=== PATIENT | male | born 1950 | race Caucasian/White ===

== ENCOUNTER 2019-02-19 10:51 | Inpatient (IN) | payer OTHER, MEDICARE ==
[2019-02-19] MEDS ORDERED: ASPIRIN 81 MG TABLET, CHEWABLE PO ONE (11:14)
[2019-02-19] MEDS ORDERED: KETOROLAC TROMETHAMINE INJ/PF 30 MG/1 ML SDV IV ONE (11:15)
--- NOTE | 2019-02-19 11:16 | ER Document Report ---
ED Medical Screen (RME) - General Chief Complaint: Chest Pain Stated Complaint: CHEST PAIN Time Seen by Provider: 02/19/19 11:09 Primary Care Provider: HILARIA MCFADDEN MD [Primary Care Provider] - Follow up as needed Mode of Arrival: Ambulatory Information source: Patient Notes: Patient presents emergency department with complaints of chest pain\epigastric pain for the past few weeks. Reports increased pain in the past 4 days. Reports history of pancreatitis believes it may be this. Also reports history of diabetes COPD and [place]. Denies other symptoms such as fever vomiting diarrhea. EKG shows sinus rhythm. Respiratory rate even unlabored I have greeted and performed a rapid initial assessment of this patient. A comprehensive ED assessment and evaluation of the patient, analysis of test results and completion of the medical decision making process will be conducted by additional ED providers. Dictation of this chart was performed using voice recognition software; therefore, there may be some unintended grammatical errors. TRAVEL OUTSIDE OF THE [place] IN LAST 30 DAYS: No - Related Data Allergies/Adverse Reactions: bupropion HCl [From Wellbutrin] Allergy (Unknown, Verified 02/19/19 10:52) lamotrigine [From Lamictal] Allergy (Unknown, Verified 02/19/19 10:52) lovastatin [Lovastatin] Allergy (Unknown, Verified 02/19/19 10:52) quetiapine [Quetiapine] Allergy (Unknown, Verified 02/19/19 10:52) simvastatin [From Zocor] Allergy (Unknown, Verified 02/19/19 10:52) Past Medical History - Social History Chew tobacco use (# tins/day): No Frequency of alcohol use: None Drug Abuse: None - Past Medical History Cardiac Medical History: Reports: Hx Hypercholesterolemia, Hx Hypertension Pulmonary Medical History: Reports: Hx COPD Denies: Hx Tuberculosis Endocrine Medical History: Reports: Hx Diabetes Mellitus Type 2 Renal/ Medical History: Reports: Hx Kidney Stones. Denies: Hx Peritoneal Dialysis GI Medical History: Reports: Hx Gastroesophageal Reflux Disease, Hx Pancreatitis Musculoskeltal Medical History: Reports Hx Arthritis Psychiatric Medical History: Reports: Hx Depression, Hx Post Traumatic Stress Disorder - Due to serving in [place] Past Surgical History: Reports: Hx Appendectomy, Hx Cholecystectomy. Denies: Hx Pacemaker - Immunizations Hx Diphtheria, Pertussis, Tetanus Vaccination: Yes Physical Exam - Vital signs Vitals: Temp Pulse Resp BP Pulse Ox 98.4 F 102 H 18 127/77 H 96 02/19/19 11:07 02/19/19 11:07 02/19/19 11:07 02/19/19 11:07 02/19/19 11:07 Course - Vital Signs Vital signs: Temp Pulse Resp BP Pulse Ox 98.4 F 102 H 18 127/77 H 96 02/19/19 11:07 02/19/19 11:07 02/19/19 11:07 02/19/19 11:07 02/19/19 11:07 Doctor's Discharge - Discharge Referrals: HILARIA MCFADDEN MD [Primary Care Provider] - Follow up as needed
[2019-02-19 11:42] LABS: ABSOLUTE BASOPHILS # (AUTO) 0.1 10^3/uL (0.0-0.2); ABSOLUTE MONOCYTES (AUTO) 1.5 10^3/uL (0.1-1.4); ABSOLUTE NEUT (AUTO) 9.1 10^3/uL (1.7-8.2); BASOPHILS % (AUTO) 0.9 % (0-2); EOSINOPHILS % (AUTO) 0.3 % (0-6); HEMATOCRIT 36.3 % (37.9-51.0); HEMOGLOBIN 12.2 g/dL (13.5-17.0); LYMPHOCYTES % (AUTO) 8.2 % (13-45); MEAN CORPUSCULAR HGB CONC 33.7 g/dL (32.0-36.0); MEAN CORPUSCULAR VOLUME 83 fl (80-97); PLATELET COUNT 393 10^3/uL (150-450); RED BLOOD COUNT 4.37 10^6/uL (4.35-5.55); RED CELL DISTRIBUTION WIDTH 13.3 % (11.5-14.0); SEGMENTED NEUTROPHILS % (AUTO) 77.6 % (42-78); TOTAL CELLS COUNTED % (AUTO) 100 %; WHITE BLOOD COUNT 11.8 10^3/uL (4.0-10.5)
[2019-02-19 12:02] LABS: ALANINE AMINOTRANSFERASE 16 U/L (21-72); ALKALINE PHOSPHATASE 121 U/L (38-126); AMYLASE 35 U/L (30-110); ANION GAP 15 (5-19); ASPARTATE AMINO TRANSFERASE 13 U/L (17-59); BILIRUBIN,DIRECT 0.4 mg/dL (0.0-0.4); BILIRUBIN,TOTAL 0.8 mg/dL (0.2-1.3); BLOOD UREA NITROGEN 19 mg/dL (7-20); CALCIUM 11.1 mg/dL (8.4-10.2); CARBON DIOXIDE 20 mmol/L (22-30); CHLORIDE 101 mmol/L (98-107); CREATINE KINASE 21 U/L (55-170); GLUCOSE 263 mg/dL (75-110); LIPASE 33.5 U/L (23-300); POTASSIUM 4.9 mmol/L (3.6-5.0); SODIUM 135.5 mmol/L (137-145); TOTAL PROTEIN 7.6 g/dL (6.3-8.2)
[2019-02-19 12:14] LABS: APPEARANCE,URINE SLIGHTLY-CLOUDY; BILIRUBIN,URINE SMALL (NEGATIVE); GLUCOSE, URINE >=500 mg/dL (NEGATIVE); KETONES,URINE 20 mg/dL (NEGATIVE); LEUKOCYTE ESTERASE,URINE NEGATIVE (NEGATIVE); NITRITE,URINE NEGATIVE (NEGATIVE); PROTEIN,URINE 100 mg/dL (NEGATIVE); URINE SPECIFIC GRAVITY 1.027; UROBILINOGEN,URINE NEGATIVE mg/dL (<2.0)
[2019-02-19 12:15] LABS: COLOR,URINE YELLOW
--- NOTE | 2019-02-19 12:15 | RADIOLOGY REPORT (SQ) ---
EXAM DESCRIPTION: CHEST 2 VIEWS COMPLETED DATE/TIME: 02/19/2019 12:03 pm REASON FOR STUDY: chest pain/epigastric pain COMPARISON: 05/24/2015 EXAM PARAMETERS: NUMBER OF VIEWS: two views TECHNIQUE: Digital Frontal and Lateral radiographic views of the chest acquired. RADIATION DOSE: NA LIMITATIONS: none FINDINGS: LUNGS AND PLEURA: Improved right upper lobe aeration with minimal residual linear opacitie s, likely scarring. No new airspace disease, pleural effusion or pneumothorax. MEDIASTINUM AND HILAR STRUCTURES: No masses or contour abnormalities. HEART AND VASCULAR STRUCTURES: Normal heart size. Aortic atherosclerosis. BONES: No acute findings. HARDWARE: None in the chest. OTHER: No other significant finding. IMPRESSION: Mild streaky right basilar opacities possibly atelectasis/scarring or infection. Right upper lobe scarring. TECHNICAL DOCUMENTATION: JOB ID: [id number] [employer]- All Rights Reserved Reading location - IP/workstation name: [email or web address]
--- NOTE | 2019-02-19 12:39 | ER Document Report ---
ED General - General Chief Complaint: Chest Pain Stated Complaint: CHEST PAIN Time Seen by Provider: 02/19/19 11:09 Primary Care Provider: HILARIA MCFADDEN MD [NO LOCAL MD] - Follow up as needed Mode of Arrival: Ambulatory Notes: Patient has had pain in the epigastric region for the past couple of weeks, off and on. Over the last 4 days, his pain has increased and he is been unable to sleep. He has not been eating or drinking much fluid. Patient has a history of chronic relapsing pancreatitis, starting about 35 years ago. He says he has had about 20 episodes of pancreatitis in his lifetime. At one time, he had a stent in his common bile duct, but that has now been removed. Denies any nausea or vomiting. Has not been eating because in the past he has been able to self treat by not eating or drinking anything and stimulating his pancreas. Denies any chest pains. Denies any fevers. Some cough. Does not drink alcohol. PMH: Appendectomy and cholecystectomy, many years ago. Insulin-dependent diabetic. GERD. Hypertension. High cholesterol. TRAVEL OUTSIDE OF THE [place] IN LAST 30 DAYS: No - Related Data Allergies/Adverse Reactions: bupropion HCl [From Wellbutrin] Allergy (Unknown, Verified 02/19/19 10:52) lamotrigine [From Lamictal] Allergy (Unknown, Verified 02/19/19 10:52) lovastatin [Lovastatin] Allergy (Unknown, Verified 02/19/19 10:52) quetiapine [Quetiapine] Allergy (Unknown, Verified 02/19/19 10:52) simvastatin [From Zocor] Allergy (Unknown, Verified 02/19/19 10:52) Past Medical History - General Information source: Patient - Social History Smoking Status: Former Smoker Chew tobacco use (# tins/day): No Frequency of alcohol use: None Drug Abuse: None Family History: Reviewed & Not Pertinent Patient has suicidal ideation: No Patient has homicidal ideation: No - Past Medical History Cardiac Medical History: Reports: Hx Hypercholesterolemia, Hx Hypertension Pulmonary Medical History: Reports: Hx COPD Endocrine Medical History: Reports: Hx Diabetes Mellitus Type 1, Hx Diabetes Mellitus Type 2 Renal/ Medical History: Reports: Hx Kidney Stones GI Medical History: Reports: Hx Gastroesophageal Reflux Disease, Hx Pancreatitis Musculoskeletal Medical History: Reports Hx Arthritis Psychiatric Medical History: Reports: Hx Depression, Hx Post Traumatic Stress Disorder - Due to serving in [place] Past Surgical History: Reports: Hx Appendectomy, Hx Cholecystectomy - Immunizations Hx Diphtheria, Pertussis, Tetanus Vaccination: Yes Hx Pneumococcal Vaccination: 07/08/08 Review of Systems - Review of Systems Notes: REVIEW OF SYSTEMS: CONSTITUTIONAL : Denies fever. EENT: Denies eye, ear, nose or mouth or throat pain or other symptoms. CARDIOVASCULAR: Denies chest pain. RESPIRATORY: Denies cough, chest congestion, or shortness of breath. GASTROINTESTINAL: See HPI. GENITOURINARY: Denies difficulty or painful urinating, urinary frequency, blood in urine. MUSCULOSKELETAL: Denies back or neck pain. Denies joint pain or swelling. SKIN: Denies rash or skin lesions. NEUROLOGICAL: Denies LOC or altered mental status. Denies headache. Denies sensory loss or motor deficits. ALL OTHER SYSTEMS REVIEWED AND NEGATIVE. Physical Exam - Vital signs Vitals: Temp Pulse Resp BP Pulse Ox 98.4 F 102 H 18 127/77 H 96 02/19/19 11:07 02/19/19 11:07 02/19/19 11:07 02/19/19 11:07 02/19/19 11:07 Interpretation: Normal Notes: PHYSICAL EXAMINATION: GENERAL: Well-appearing, in no acute distress. HEAD: Atraumatic, normocephalic. EYES: Pupils equal round and reactive to light, extraocular movements intact. ENT: oropharynx clear without exudates. Moist mucous membranes. NECK: Normal range of motion, supple. LUNGS: Breath sounds clear and equal bilaterally. HEART: Regular rate and rhythm without murmurs. ABDOMEN: Very tender to press in the epigastrium. Some guarding there. No rebound. Remainder of the abdomen is soft. BACK: No tenderness throughout entire back. EXTREMITIES: Normal range of motion without pain. NEUROLOGICAL: Normal speech, normal gait. Normal sensory, motor, and reflex exams. Awake, alert, and oriented x3. Cranial nerves normal. PSYCH: Normal mood, normal affect. SKIN: Warm, dry, no rashes. Course - Re-evaluation Re-evalutation: 02/19/19 16:39 Patient had slight pain relief with Toradol given at triage. He says the pain is coming back now and have ordered him a milligram of IV Dilaudid. CT scan shows pancreatitis. Spoke with hospitalist, Dr. Lu, who will come and admit the patient to elemetry. - Vital Signs Vital signs: Temp Pulse Resp BP Pulse Ox 98.4 F 102 H 18 145/78 H 96 02/19/19 11:07 02/19/19 11:07 02/19/19 14:02 02/19/19 14:01 02/19/19 14:02 - Laboratory Result Diagrams: 02/19/19 11:24 02/19/19 11:24 Laboratory results interpreted by me: 02/19/19 02/19/19 02/19/19 11:24 11:24 11:34 WBC 11.8 H Hgb 12.2 L Hct 36.3 L Lymphocytes % 8.2 L Absolute Neutrophils 9.1 H Absolute Monocytes 1.5 H Sodium 135.5 L Carbon Dioxide 20 L Glucose 263 H Calcium 11.1 H AST 13 L ALT 16 L Creatine Kinase 21 L Urine Protein 100 H Urine Glucose (UA) >=500 H Urine Ketones 20 H Urine Bilirubin SMALL H - Diagnostic Test Radiology reviewed: Image reviewed, Reports reviewed - CT scan shows pancreatitis. - EKG Interpretation by Me EKG shows normal: Sinus rhythm Rhythm: NSR Additional EKG results interpreted by me: 02/19/19 16:44 EKG is normal with no acute changes. No STEMI. Discharge - Discharge Clinical Impression: Pancreatitis Condition: Stable Disposition: ADMITTED INPATIENT Admitting Provider: Tabitha (Hospitalist) Unit Admitted: Telemetry Referrals: HILARIA MCFADDEN MD [NO LOCAL MD] - Follow up as needed
[2019-02-19] MEDS: NORMAL SALINE 1000 ML 1,000 ML IV PRN ×2 (12:43→13:30)
[2019-02-19 13:27] LABS: URINE AMPHETAMINES SCREEN NEGATIVE; URINE BARBITURATES SCREEN NEGATIVE; URINE BENZODIAZEPINES SCREEN NEGATIVE; URINE COCAINE SCREEN NEGATIVE; URINE MARIJUANA (THC) SCREEN NEGATIVE; URINE METHADONE SCREEN NEGATIVE; URINE PHENCYCLIDINE SCREEN NEGATIVE
--- NOTE | 2019-02-19 14:39 | EKG REPORT ---
SEVERITY:- NORMAL ECG - SINUS RHYTHM : Confirmed by: Ray Holden MD 19-Feb-2019 14:38:14
--- NOTE | 2019-02-19 16:08 | RADIOLOGY REPORT (SQ) ---
EXAM DESCRIPTION: CT ABD/PELVIS WITH IV ORAL COMPLETED DATE/TIME: 02/19/2019 3:44 pm REASON FOR STUDY: Epig pain, Hx multiple pancreatitis, lipase normal COMPARISON: None. TECHNIQUE: CT scan of the abdomen and pelvis performed using helical scanning technique with dynamic intravenous contrast injection. No oral contrast. Images reviewed with lung, soft tissue, and bone windows. Reconstructed coronal and sagittal MPR images reviewed. Delayed images for evaluation of the urinary system also acquired. All images stored on PACS. All CT scanners at this facility use dose modulation, iterative reconstruction, and/or weight based d osing when appropriate to reduce radiation dose to as low as reasonably achievable (ALARA). [facility]: Dose Right [facility]: CareDose [facility]: Dose Right [facility]: Teradose 4D [facility]: [employer] CONTRAST TYPE AND DOSE: contrast/concentration: Isovue 350.00 mg/ml; Total Contrast Delivered: 77.0 ml; Total Saline Delivered: 67.0 ml RENAL FUNCTION: CREATININE 0.56 RADIATION DOSE: CT Rad equipment meets quality standard of care and radiation dose reduction techniq ues were employed. CTDIvol: 9.5 - 13.5 mGy. DLP: 1134 mGy-cm.. LIMITATIONS: None. FINDINGS: LOWER CHEST: No significant findings. No nodules or infiltrates. LIVER: Mild intrahepatic ductal dilation, similar to prior. There is no focal hepatic lesions. Norm al liver size. SPLEEN: Normal size. No focal lesions. PANCREAS: Diffuse pancreatic parenchymal calcifications. There is persistent dilation of the main pa ncreatic duct measuring up to 1.0 cm. Bulky calcifications at the level of the pancreatic duct in th e head and uncinate process. There is ill-defined peripancreatic stranding. No evidence of hypoenha ncement of the pancreatic parenchyma or large adjacent collection. GALLBLADDER: Surgically absent. Dilation of the CBD measuring up to 9 mm, stable. ADRENAL GLANDS: No significant masses or asymmetry. RIGHT KIDNEY AND URETER: Minimally increased size of the interpolar cyst. No discrete solid masses. No nephrolithiasis. No hydronephrosis. LEFT KIDNEY AND URETER: Scattered subcentimeter hypodense lesions, likely cysts. No nephrolithiasis. No hydronephrosis. AORTA AND VESSELS: No aneurysm. No dissection. Renal arteries, SMA, celiac without stenosis. RETROPERITONEUM: No retroperitoneal adenopathy, hemorrhage or masses. BOWEL AND PERITONEAL CAVITY: No evidence of intestinal obstruction. Scattered colonic diverticula. No focal bowel wall thickening. APPENDIX: Not visualized. PELVIS: No mass. No free fluid. Normal bladder. ABDOMINAL WALL: No masses. No hernias. BONES: No acute bony abnormality. No suspicious lytic or blastic osseous lesions. OTHER: No other significant finding. IMPRESSION: 1. Findings compatible with acute interstitial pancreatitis. No evidence of pancreatic necrosis or peripancreatic collection. 2. Additional stable findings of chronic pancreatitis with pancreatic calcifications and dilation of the main pancreatic duct measuring up to 1.0 cm. Bulky calcifications within the duct at the level of the pancreatic head, stable. Additional stable mild intrahepatic biliary ductal dilation. TECHNICAL DOCUMENTATION: JOB ID: [id number] Quality ID # [id number]: Final reports with documentation of one or more dose reduction techniques (e.g., Au tomated exposure control, adjustment of the mA and/or kV according to patient size, use of iterative reconstruction technique) 2010 [employer]- All Rights Reserved Reading location - IP/workstation name: [email or web address]
[2019-02-19] MEDS ORDERED: HYDROMORPHONE HCL INJ/PF 2 MG/ML AMPULE IV ONE (16:12)
[2019-02-19] MEDS ORDERED: ONDANSETRON HCL INJ/PF 4 MG/2 ML SDV IV PRN (17:09)
[2019-02-19] MEDS ORDERED: GLUCAGON,HUMAN RECOMB 1 MG INJ SUBCUT PRN (17:09)
[2019-02-19] MEDS ORDERED: DEXTROSE 40% GEL 15 GM TUBE PO PRN ×2 (17:09)
[2019-02-19] MEDS ORDERED: DEXTROSE 50%-WATER 25 GM/50 ML DISP.SYRIN IV PRN ×2 (17:09)
[2019-02-19] MEDS ORDERED: ALBUTEROL SULFATE HFA (90 MCG/PUFF) 200 PUFF/8.5 GM MDI IH PRN (17:15)
--- NOTE | 2019-02-19 17:33 | PDOC H&P ---
History of Present Illness Admission Date/PCP: 02/19/19 16:50 [facility] History of Present Illness: OZIEL HAYWARD is a 68 year old male with a history of chronic pancreatitis who said he is been admitted to the hospital over 20 times in his life with pancreatitis who presents with a nearly 2-week history of gnawing dull aching mid epigastric abdominal pain. Nothing really makes it better. He has continued to eat through it but said he did not have anything to eat yesterday. He has not had any diarrhea or abdominal distention. No nausea or vomiting. No fevers. He said he has not drank alcohol very long time, for several years. He looked pretty comfortable when I saw him in the ER, but he said he had just gotten a "pain shot." He was asking about getting something to eat, but I told him that that was contrary to the treatment for pancreatitis. Past Medical History Cardiac Medical History: Reports: Hyperlipidema, Hypertension Pulmonary Medical History: Reports: Chronic Obstructive Pulmonary Disease (COPD) Denies: Tuberculosis Endocrine Medical History: Reports: Diabetes Mellitus Type 1, Diabetes Mellitus Type 2 GI Medical History: Reports: Gastroesophageal Reflux Disease Musculoskeltal Medical History: Reports: Arthritis Psychiatric Medical History: Reports: Depression, Post Traumatic Stress Disorder - Due to serving in [place] War Past Surgical History Past Surgical History: Reports: Appendectomy, Cholecystectomy Denies: Pacemaker Social History Smoking Status: Former Smoker Hx Recreational Drug Use: Yes Hx Prescription Drug Abuse: No Family History Family History: Reviewed & Not Pertinent Parental Family History Reviewed: Yes - Both parents of stroke Children Family History Reviewed: Unknown Sibling(s) Family History Reviewed.: Yes - Brother of an [place], one had pancreatic cancer, and a sister had lung cancer Medication/Allergy Home Medications: Albuterol Sulfate [Proair Hfa Inhalation Aerosol 8.5 Gm Mdi] 200 puff IH Q6H PRN 12/04/11 Amlodipine Besylate [Norvasc 10 mg Tablet] 10 mg PO DAILY 12/04/11 Butalbital/Acetaminophen [Sedapap Tablet] 1 each PO Q6H PRN 12/04/11 Colestipol HCl 2 gm PO DAILY 12/04/11 Docusate Calcium [Surfak] 240 mg PO QHS 12/04/11 Ezetimibe [Zetia 10 Mg Tablet] 10 mg PO DAILY 12/04/11 Gemfibrozil 600 mg PO BID 12/04/11 Hydrocodone Bit/Acetaminophen [Hydrogesic 5-500 Mg Capsule] 1 each PO QID PRN 12/04/11 Multivitamin [Multivitamins] 1 each PO DAILY 12/04/11 Omeprazole [Prilosec] 20 mg PO DAILY 12/04/11 Psyllium Seed [Psyllium] 2 tsp PO QHS 12/04/11 Sertraline HCl 200 mg PO DAILY 12/04/11 Sildenafil Citrate [Viagra] 50 mg PO ASDIR PRN 12/04/11 Tiotropium [place] [Spiriva Handihaler 5 Doses/Package] 18 mcg IH DAILY 12/04/11 Trazodone HCl [Desyrel] 50 mg PO QHS 12/04/11 Insulin Regular, Human [Humulin R (Reg) Insulin 100 unit/mL] 12/08/11 Metformin HCl [Glucophage 500 Mg Tablet] 500 mg PO BID 12/08/11 Levofloxacin [Levaquin 750 mg Tablet] 750 mg PO DAILY #10 tablet 05/24/15 Ondansetron [Zofran Odt 4 mg Tablet] 1 - 2 tab PO Q4H #10 tab.rapdis 05/24/15 Tramadol HCl/Acetaminophen [Ultracet 37.5 mg/325 mg Tablet] 1 each PO Q6 #20 tablet 05/24/15 Allergies/Adverse Reactions: bupropion HCl [From Wellbutrin] Allergy (Unknown, Verified 02/19/19 10:52) lamotrigine [From Lamictal] Allergy (Unknown, Verified 02/19/19 10:52) lovastatin [Lovastatin] Allergy (Unknown, Verified 02/19/19 10:52) quetiapine [Quetiapine] Allergy (Unknown, Verified 02/19/19 10:52) simvastatin [From Zocor] Allergy (Unknown, Verified 02/19/19 10:52) Review of Systems All systems: reviewed and no additional remarkable complaints except as stated - All systems were reviewed and were negative except as noted above Physical Exam Vital Signs: Temp Pulse Resp BP Pulse Ox 98.4 F 102 H 20 142/83 H 94 02/19/19 11:07 02/19/19 11:07 02/19/19 17:01 02/19/19 17:01 02/19/19 17:01 Intake & Output 02/18/19 02/19/19 02/20/19 06:59 06:59 06:59 Intake Total 2000 Balance 2000 Weight 66.9 kg General appearance: PRESENT: no acute distress, cooperative, disheveled Head exam: PRESENT: atraumatic, normocephalic Eye exam: PRESENT: EOMI, PERRLA. ABSENT: conjunctival injection, nystagmus, scleral icterus Ear exam: PRESENT: normal external ear exam Mouth exam: PRESENT: dry mucosa, neck supple Throat exam: ABSENT: post pharyngeal erythema Neck exam: PRESENT: full ROM. ABSENT: carotid bruit, JVD, lymphadenopathy, meningismus, tenderness, thyromegaly Respiratory exam: PRESENT: clear to auscultation eric, symmetrical, unlabored. ABSENT: accessory muscle use, chest wall tenderness, crackles, prolonged expiratory phas, rhonchi, tachypnea, wheezes Cardiovascular exam: PRESENT: RRR, +S1, +S2 Pulses: PRESENT: normal carotid pulses Vascular exam: PRESENT: normal capillary refill GI/Abdominal exam: PRESENT: hypoactive bowel sounds, soft, tenderness - Mild midepigastric tenderness to palpation. ABSENT: distended, guarding, rebound Extremities exam: ABSENT: clubbing, pedal edema Musculoskeletal exam: PRESENT: ambulatory, normal inspection. ABSENT: deformity Neurological exam: PRESENT: alert, awake, oriented to person, oriented to place, oriented to time, oriented to situation, CN II-XII grossly intact. ABSENT: motor sensory deficit Psychiatric exam: PRESENT: appropriate affect, normal mood Skin exam: PRESENT: dry, warm Results Laboratory Results: 02/19/19 11:24 02/19/19 11:24 02/19/19 02/19/19 02/19/19 11:24 11:24 11:34 WBC 11.8 H RBC 4.37 Hgb 12.2 L Hct 36.3 L MCV 83 MCH 28.0 MCHC 33.7 RDW 13.3 Plt Count 393 Seg Neutrophils % 77.6 Lymphocytes % 8.2 L Monocytes % 13.0 Eosinophils % 0.3 Basophils % 0.9 Absolute Neutrophils 9.1 H Absolute Lymphocytes 1.0 Absolute Monocytes 1.5 H Absolute Eosinophils 0.0 Absolute Basophils 0.1 Sodium 135.5 L Potassium 4.9 Chloride 101 Carbon Dioxide 20 L Anion Gap 15 BUN 19 Creatinine 0.56 Est GFR ( Amer) > 60 Est GFR (Non-Af Amer) > 60 Glucose 263 H Calcium 11.1 H Total Bilirubin 0.8 AST 13 L ALT 16 L Alkaline Phosphatase 121 Total Protein 7.6 Albumin 4.0 Amylase 35 Lipase 33.5 Urine Color YELLOW Urine Appearance SLIGHTLY-CLOUDY Urine pH 5.0 Ur Specific [place] 1.027 Urine Protein 100 H Urine Glucose (UA) >=500 H Urine Ketones 20 H Urine Blood NEGATIVE Urine Nitrite NEGATIVE Ur Leukocyte Esterase NEGATIVE Urine WBC (Auto) 2 Urine RBC (Auto) 1 02/19/19 02/19/19 11:24 11:24 Creatine Kinase 21 L Troponin I < 0.012 Impressions: Abdomen/Pelvis CT 02/19/19 00:00 IMPRESSION: 1. Findings compatible with acute interstitial pancreatitis. No evidence of pancreatic necrosis or peripancreatic collection. 2. Additional stable findings of chronic pancreatitis with pancreatic calcifications and dilation of the main pancreatic duct measuring up to 1.0 cm. Bulky calcifications within the duct at the level of the pancreatic head, stable. Additional stable mild intrahepatic biliary ductal dilation. Chest X-Ray 02/19/19 11:14 IMPRESSION: Mild streaky right basilar opacities possibly atelectasis/scarring or infection. Right upper lobe scarring. Assessment and Plan - Diagnosis (1) Acute on chronic pancreatitis Is this a current diagnosis for this admission?: Yes Plan: Gut rest. He may have ice chips. Many of his medications will be on hold. IV fluids. PRN antiemetics and pain medication. We will advance his diet as he tolerates. His pancreas is fairly heavily calcified on CT and so his pancreatic enzymes may not reflect his current clinical status regarding inflammation of his pancreas. There was some mild peripancreatic stranding on CT. (2) Insulin dependent diabetes mellitus Is this a current diagnosis for this admission?: Yes Plan: Holding his metformin because of his CT scan. We will hold his long-acting insulin while he is n.p.o. PRN sliding scale. (3) COPD (chronic obstructive pulmonary disease) Qualifiers: COPD type: chronic bronchitis Chronic bronchitis type: simple Qualified Code(s): J41.0 - Simple chronic bronchitis Is this a current diagnosis for this admission?: Yes Plan: Continue his home medications, not acutely exacerbated - Time Time Spent with patient: 70 minutes Time Spent with patient: 35 or more minutes - Inpatient Certification Based on my medical assessment, after consideration of the patient's comorbidities, presenting symptoms, or acuity I expect that the services needed warrant INPATIENT care.: Yes I certify that my determination is in accordance with my understanding of Medicare's requirements for reasonable and necessary INPATIENT services [42 CFR 412.3e].: Yes Medical Necessity: Significant Comorbidiites Make Outpatient Treatment Too Risky, Need Close Monitoring Due to Risk of Patient Decompensation, Need For IV Fluids, Need For Continuous Telemetry Monitoring
[2019-02-19] MEDS: INSULIN LISPRO 100 UNIT/ML 3 ML VIAL SUBCUT SCH (17:52)
[2019-02-19] MEDS: MORPHINE SULFATE 10 MG/ML INJ IV PRN (21:27)
[2019-02-19] MEDS: HEPARIN SOD (PORCINE) 5,000 UNIT/ML 1 ML SYRINGE SUBCUT SCH (21:27)
[2019-02-20] MEDS: INSULIN LISPRO 100 UNIT/ML 3 ML VIAL SUBCUT SCH ×6 (00:24→17:21)
[2019-02-20] MEDS: MORPHINE SULFATE 10 MG/ML INJ IV PRN ×5 (02:32→23:41)
[2019-02-20] MEDS: HEPARIN SOD (PORCINE) 5,000 UNIT/ML 1 ML SYRINGE SUBCUT SCH ×3 (06:44→22:26)
[2019-02-20 06:57] LABS: HEMATOCRIT 33.4 % (37.9-51.0); HEMOGLOBIN 11.3 g/dL (13.5-17.0); MEAN CORPUSCULAR HEMOGLOBIN 28.1 pg (27.0-33.4); MEAN CORPUSCULAR VOLUME 83 fl (80-97); PLATELET COUNT 331 10^3/uL (150-450); RED BLOOD COUNT 4.04 10^6/uL (4.35-5.55); RED CELL DISTRIBUTION WIDTH 13.3 % (11.5-14.0); WHITE BLOOD COUNT 11.4 10^3/uL (4.0-10.5)
[2019-02-20 07:12] LABS: ANION GAP 15 (5-19); BLOOD UREA NITROGEN 10 mg/dL (7-20); CALCIUM 10.7 mg/dL (8.4-10.2); CARBON DIOXIDE 18 mmol/L (22-30); CHLORIDE 103 mmol/L (98-107); GLUCOSE 146 mg/dL (75-110); LIPASE 14.2 U/L (23-300); POTASSIUM 4.2 mmol/L (3.6-5.0); SODIUM 135.6 mmol/L (137-145)
[2019-02-20] MEDS: RINGERS SOLUTION,LACTATED 1,000 ML IV PRN ×3 (08:34→22:30)
[2019-02-20] MEDS: TIOTROPIUM BROMIDE DPI 5 CAP/KIT (18 MCG/CAP) IH SCH (10:27)
--- NOTE | 2019-02-20 11:24 | PDOC PROGRESS REPORT ---
Subjective Progress Note for:: 02/20/19 Subjective:: OZIEL HAYWARD is a 68 year old male with a history of chronic pancreatitis who said he is been admitted to the hospital over 20 times in his life with pancreatitis who presents with a nearly 2-week history of gnawing dull aching mid epigastric abdominal pain. Nothing really makes it better. He has continued to eat through it but said he did not have anything to eat yesterday. He has not had any diarrhea or abdominal distention. No nausea or vomiting. No fevers. He said he has not drank alcohol very long time, for several years. He looked pretty comfortable when I saw him in the ER, but he said he had just gotten a "pain shot." He was asking about getting something to eat, but I told him that that was contrary to the treatment for pancreatitis. 02/20/2019. Complaining of persistent abdominal pain, 3/5, mild nausea, denies any vomiting, passing flatus, has not had any vomiting, denies any fever, chills, vomiting, diarrhea, or any urinary symptoms. SBP 057817, T-max 98.6, pulse 60195, SPO2 9296 RA. WBC 11.4, hemoglobin 11.3, platelets 331, sodium 135, potassium 4.2, bicarb 18, creatinine 0.4, HBG 146, POC glucose 625971, Lipase 14.2. Reason For Visit: ACUTE ON CHRONIC PANCREATITIS Physical Exam Vital Signs: Temp Pulse Resp BP Pulse Ox 98.6 F 110 H 17 159/75 H 92 02/20/19 07:55 02/20/19 07:55 02/20/19 07:55 02/20/19 07:55 02/20/19 07:55 Intake & Output 02/19/19 02/20/19 02/21/19 06:59 06:59 06:59 Intake Total 2120 Output Total 930 Balance 1190 Weight 68.2 kg General appearance: PRESENT: no acute distress, well-developed, well-nourished Head exam: PRESENT: atraumatic, normocephalic Neck exam: ABSENT: carotid bruit, JVD, lymphadenopathy, thyromegaly Respiratory exam: PRESENT: clear to auscultation eric. ABSENT: rales, rhonchi, wheezes Cardiovascular exam: PRESENT: RRR. ABSENT: diastolic murmur, rubs, systolic murmur GI/Abdominal exam: PRESENT: guarding, hypoactive bowel sounds, tenderness Extremities exam: PRESENT: full ROM. ABSENT: calf tenderness, clubbing, pedal edema Neurological exam: PRESENT: alert, awake, oriented to person, oriented to place, oriented to time, oriented to situation, CN II-XII grossly intact. ABSENT: motor sensory deficit Results Laboratory Results: 02/20/19 06:07 02/20/19 06:07 02/19/19 02/19/19 02/19/19 11:24 11:24 11:34 WBC 11.8 H RBC 4.37 Hgb 12.2 L Hct 36.3 L MCV 83 MCH 28.0 MCHC 33.7 RDW 13.3 Plt Count 393 Seg Neutrophils % 77.6 Lymphocytes % 8.2 L Monocytes % 13.0 Eosinophils % 0.3 Basophils % 0.9 Absolute Neutrophils 9.1 H Absolute Lymphocytes 1.0 Absolute Monocytes 1.5 H Absolute Eosinophils 0.0 Absolute Basophils 0.1 Sodium 135.5 L Potassium 4.9 Chloride 101 Carbon Dioxide 20 L Anion Gap 15 BUN 19 Creatinine 0.56 Est GFR ( Amer) > 60 Est GFR (Non-Af Amer) > 60 Glucose 263 H Calcium 11.1 H Total Bilirubin 0.8 AST 13 L ALT 16 L Alkaline Phosphatase 121 Total Protein 7.6 Albumin 4.0 Amylase 35 Lipase 33.5 Urine Color YELLOW Urine Appearance SLIGHTLY-CLOUDY Urine pH 5.0 Ur Specific [place] 1.027 Urine Protein 100 H Urine Glucose (UA) >=500 H Urine Ketones 20 H Urine Blood NEGATIVE Urine Nitrite NEGATIVE Ur Leukocyte Esterase NEGATIVE Urine WBC (Auto) 2 Urine RBC (Auto) 1 02/20/19 02/20/19 06:07 06:07 WBC 11.4 H RBC 4.04 L Hgb 11.3 L Hct 33.4 L MCV 83 MCH 28.1 MCHC 34.0 RDW 13.3 Plt Count 331 Seg Neutrophils % Lymphocytes % Monocytes % Eosinophils % Basophils % Absolute Neutrophils Absolute Lymphocytes Absolute Monocytes Absolute Eosinophils Absolute Basophils Sodium 135.6 L Potassium 4.2 Chloride 103 Carbon Dioxide 18 L Anion Gap 15 BUN 10 Creatinine 0.47 L Est GFR ( Amer) > 60 Est GFR (Non-Af Amer) > 60 Glucose 146 H Calcium 10.7 H Total Bilirubin AST ALT Alkaline Phosphatase Total Protein Albumin Amylase Lipase 14.2 L Urine Color Urine Appearance Urine pH Ur Specific [place] Urine Protein Urine Glucose (UA) Urine Ketones Urine Blood Urine Nitrite Ur Leukocyte Esterase Urine WBC (Auto) Urine RBC (Auto) 02/19/19 02/19/19 11:24 11:24 Creatine Kinase 21 L Troponin I < 0.012 Impressions: Abdomen/Pelvis CT 02/19/19 00:00 IMPRESSION: 1. Findings compatible with acute interstitial pancreatitis. No evidence of pancreatic necrosis or peripancreatic collection. 2. Additional stable findings of chronic pancreatitis with pancreatic calcifications and dilation of the main pancreatic duct measuring up to 1.0 cm. Bulky calcifications within the duct at the level of the pancreatic head, stable. Additional stable mild intrahepatic biliary ductal dilation. Chest X-Ray 02/19/19 11:14 IMPRESSION: Mild streaky right basilar opacities possibly atelectasis/scarring or infection. Right upper lobe scarring. Assessment and Plan - Diagnosis (1) Acute on chronic pancreatitis Is this a current diagnosis for this admission?: Yes Plan: Afebrile, persistent pain, passing flatus, has not had any vomiting, mild nausea, no vomiting. Continue IV fluids, IV opioid analgesics, antiemetics, clear liquids if tolerated. Restart pancrelipase, colestipol. 02/20/2019: SBP 932210, T-max 98.6, pulse 61951, SPO2 9296 RA. WBC 11.4, hemoglobin 11.3, platelets 331, sodium 135, potassium 4.2, bicarb 18, creatinine 0.4, Lipase 14.2. (2) COPD (chronic obstructive pulmonary disease) Qualifiers: COPD type: chronic bronchitis Chronic bronchitis type: simple Qualified Code(s): J41.0 - Simple chronic bronchitis Is this a current diagnosis for this admission?: Yes Plan: Not on acute exacerbation, continue DuoNeb's, supplemental oxygen, PRN BiPAP. (3) Insulin dependent diabetes mellitus Is this a current diagnosis for this admission?: Yes Plan: Improving, not optimized. 02/20/2019: POC glucose 154347 Diabetic diet, sliding scale insulin, pre-meal insulin, long-acting insulin. Adjust dosage as needed. Restart home meds upon discharge. (4) Hyperlipidemia Is this a current diagnosis for this admission?: No Plan: Diet and lifestyle modification. Restart home meds. (5) Musculoskeletal pain, chronic Is this a current diagnosis for this admission?: No Plan: History of chronic neck injury. Restart Robaxin, cyclobenzaprine, opioid analgesics. Outpatient PCP and pain management follow-up. (6) Hypertension Is this a current diagnosis for this admission?: No Plan: Euvolemic, normotensive. Restart home meds. Adjust meds as needed. 02/20/2019: SBP 591415, T-max 98.6, pulse 17566, SPO2 9296 RA.
[2019-02-20] MEDS ORDERED: (PENDING PHARMACY ID) (Cyclobenzaprine Hcl [Flexeril 5 Mg Tablet] 5 MG) PO PRN (11:32)
[2019-02-20] MEDS ORDERED: (PENDING PHARMACY ID) (Insulin Aspart [Novolog Flexpen] 5 UNITS) SQ SCH (12:00)
[2019-02-20] MEDS ORDERED: ONDANSETRON HCL INJ/PF 4 MG/2 ML SDV IV PRN (12:30)
[2019-02-20] MEDS: METHOCARBAMOL 500 MG TABLET PO SCH ×3 (14:10→22:27)
[2019-02-20] MEDS: KETOROLAC TROMETHAMINE INJ/PF 30 MG/1 ML SDV IV PRN ×2 (15:54→22:25)
[2019-02-20] MEDS: GEMFIBROZIL 600 MG TABLET PO SCH (17:21)
[2019-02-21] MEDS: INSULIN LISPRO 100 UNIT/ML 3 ML VIAL SUBCUT SCH ×8 (03:24→22:03)
[2019-02-21 04:42] LABS: HEMATOCRIT 31.5 % (37.9-51.0); MEAN CORPUSCULAR HEMOGLOBIN 28.6 pg (27.0-33.4); MEAN CORPUSCULAR VOLUME 82 fl (80-97); PLATELET COUNT 358 10^3/uL (150-450); RED BLOOD COUNT 3.86 10^6/uL (4.35-5.55); RED CELL DISTRIBUTION WIDTH 12.8 % (11.5-14.0); WHITE BLOOD COUNT 10.9 10^3/uL (4.0-10.5)
[2019-02-21 05:06] LABS: ALANINE AMINOTRANSFERASE 13 U/L (21-72); ALBUMIN 3.1 g/dL (3.5-5.0); ALKALINE PHOSPHATASE 94 U/L (38-126); ANION GAP 12 (5-19); ASPARTATE AMINO TRANSFERASE 12 U/L (17-59); BILIRUBIN,DIRECT 0.4 mg/dL (0.0-0.4); BILIRUBIN,TOTAL 0.6 mg/dL (0.2-1.3); BLOOD UREA NITROGEN 6 mg/dL (7-20); CALCIUM 10.1 mg/dL (8.4-10.2); CARBON DIOXIDE 20 mmol/L (22-30); CHLORIDE 103 mmol/L (98-107); GLUCOSE 181 mg/dL (75-110); POTASSIUM 3.9 mmol/L (3.6-5.0); SODIUM 135.2 mmol/L (137-145); TOTAL PROTEIN 6.2 g/dL (6.3-8.2)
[2019-02-21] MEDS: MORPHINE SULFATE 10 MG/ML INJ IV PRN (06:20)
[2019-02-21] MEDS: HEPARIN SOD (PORCINE) 5,000 UNIT/ML 1 ML SYRINGE SUBCUT SCH ×3 (06:20→22:10)
[2019-02-21] MEDS: RINGERS SOLUTION,LACTATED 1,000 ML IV PRN (06:45)
[2019-02-21] MEDS: KETOROLAC TROMETHAMINE INJ/PF 30 MG/1 ML SDV IV PRN ×2 (08:33→17:24)
[2019-02-21] MEDS: GEMFIBROZIL 600 MG TABLET PO SCH ×2 (09:31→17:15)
[2019-02-21] MEDS: EZETIMIBE 10 MG TABLET PO SCH (09:31)
[2019-02-21] MEDS: METHOCARBAMOL 500 MG TABLET PO SCH ×4 (09:31→22:10)
[2019-02-21] MEDS: DULOXETINE HCL 30 MG CAPSULE.DR PO SCH (09:31)
[2019-02-21] MEDS: TIOTROPIUM BROMIDE DPI 5 CAP/KIT (18 MCG/CAP) IH SCH (09:31)
[2019-02-21] MEDS ORDERED: LOSARTAN POTASSIUM 25 MG TABLET PO SCH (10:00)
[2019-02-21] MEDS ORDERED: TIOTROPIUM BROMIDE DPI 5 CAP/KIT (18 MCG/CAP) IH SCH (10:00)
[2019-02-21] MEDS ORDERED: AMLODIPINE BESYLATE 10 MG TABLET PO SCH (10:00)
[2019-02-21] MEDS: LOSARTAN POTASSIUM 25 MG TABLET PO SCH (10:31)
[2019-02-21] MEDS: AMLODIPINE BESYLATE 10 MG TABLET PO SCH (10:31)
[2019-02-21] MEDS: HYDROMORPHONE HCL INJ/PF 2 MG/ML AMPULE IV PRN ×2 (10:35→22:03)
[2019-02-21] MEDS ORDERED: MAGNESIUM SULFATE/D5W 1 GM/100 ML RTUPB IV ONE (10:45)
[2019-02-21] MEDS ORDERED: DEXTROSE 50%-WATER SYRINGE 25 GM/50 ML DOSE IV PRN (16:00)
[2019-02-21] MEDS ORDERED: GLUCAGON,HUMAN RECOMB 1 MG INJ IM PRN (16:00)
[2019-02-21] MEDS ORDERED: DEXTROSE 50%-WATER SYRINGE 12.5 GM/25 ML DOSE IV PRN (16:00)
[2019-02-21] MEDS ORDERED: DEXTROSE 40% GEL 15 GM TUBE X 2 PO PRN (16:00)
[2019-02-21] MEDS ORDERED: DEXTROSE 40% GEL 15 GM TUBE PO PRN (16:00)
[2019-02-21] MEDS ORDERED: HYDRALAZINE HCL INJ/PF 20 MG/1 ML SDV IV PRN (16:49)
--- NOTE | 2019-02-21 17:04 | PDOC PROGRESS REPORT ---
Subjective Progress Note for:: 02/21/19 Subjective:: OZIEL HAYWARD is a 68 year old male with a history of chronic pancreatitis who said he is been admitted to the hospital over 20 times in his life with pancreatitis who presents with a nearly 2-week history of gnawing dull aching mid epigastric abdominal pain. Nothing really makes it better. He has continued to eat through it but said he did not have anything to eat yesterday. He has not had any diarrhea or abdominal distention. No nausea or vomiting. No fevers. He said he has not drank alcohol very long time, for several years. He looked pretty comfortable when I saw him in the ER, but he said he had just gotten a "pain shot." He was asking about getting something to eat, but I told him that that was contrary to the treatment for pancreatitis. 02/20/2019. Complaining of persistent abdominal pain, 3/5, mild nausea, denies any vomiting, passing flatus, has not had any vomiting, denies any fever, chills, vomiting, diarrhea, or any urinary symptoms. SBP 439130, T-max 98.6, pulse 86362, SPO2 9296 RA. WBC 11.4, hemoglobin 11.3, platelets 331, sodium 135, potassium 4.2, bicarb 18, creatinine 0.4, HBG 146, POC glucose 736197, Lipase 14.2. 02/21/2019. Complaining of persistent abdominal pain, nausea, no vomiting, passing flatus, has not had a bowel movement, is not able to tolerate p.o. intake, eating that morphine does not help with the pain, prefers Toradol. Denies any fever, chills, diarrhea, constipation or any urinary symptoms. SBP 319066, T-max 98.4, [place] 04245, SPO2 91-94% RA. BC 10.9, hemoglobin 11.0, platelets 358, odium 135, potassium 3.9, bicarb 20, pertinent 0.9 0.44, HBG 181, POC glucose 712147. Mg 1.4. Reason For Visit: ACUTE ON CHRONIC PANCREATITIS Physical Exam Vital Signs: Temp Pulse Resp BP Pulse Ox 98.4 F 105 H 17 142/74 H 92 02/21/19 15:18 02/21/19 15:18 02/21/19 15:18 02/21/19 15:18 02/21/19 15:18 Intake & Output 02/20/19 02/21/19 02/22/19 06:59 06:59 06:59 Intake Total 2120 2985 1100 Output Total 930 675 Balance 1190 2310 1100 Weight 68.2 kg 69.8 kg General appearance: PRESENT: no acute distress, well-developed, well-nourished Head exam: PRESENT: atraumatic, normocephalic Neck exam: ABSENT: carotid bruit, JVD, lymphadenopathy, thyromegaly Respiratory exam: PRESENT: clear to auscultation eric. ABSENT: rales, rhonchi, wheezes Cardiovascular exam: PRESENT: RRR. ABSENT: diastolic murmur, rubs, systolic murmur Pulses: PRESENT: normal dorsalis pedis pul GI/Abdominal exam: PRESENT: distended, firm, guarding, tenderness Neurological exam: PRESENT: alert, awake, oriented to person, oriented to place, oriented to time, oriented to situation, CN II-XII grossly intact. ABSENT: motor sensory deficit Skin exam: PRESENT: dry, intact, warm. ABSENT: cyanosis, rash Results Laboratory Results: 02/21/19 04:28 02/21/19 04:28 02/21/19 02/21/19 02/21/19 04:28 04:28 04:28 WBC 10.9 H RBC 3.86 L Hgb 11.0 L Hct 31.5 L MCV 82 MCH 28.6 MCHC 35.0 RDW 12.8 Plt Count 358 Sodium 135.2 L Potassium 3.9 Chloride 103 Carbon Dioxide 20 L Anion Gap 12 BUN 6 L Creatinine 0.44 L Est GFR ( Amer) > 60 Est GFR (Non-Af Amer) > 60 Glucose 181 H Calcium 10.1 Magnesium 1.4 L Total Bilirubin 0.6 AST 12 L ALT 13 L Alkaline Phosphatase 94 Total Protein 6.2 L Albumin 3.1 L 02/19/19 02/19/19 11:24 11:24 Creatine Kinase 21 L Troponin I < 0.012 Impressions: Abdomen/Pelvis CT 02/19/19 00:00 IMPRESSION: 1. Findings compatible with acute interstitial pancreatitis. No evidence of pancreatic necrosis or peripancreatic collection. 2. Additional stable findings of chronic pancreatitis with pancreatic calcifications and dilation of the main pancreatic duct measuring up to 1.0 cm. Bulky calcifications within the duct at the level of the pancreatic head, stable. Additional stable mild intrahepatic biliary ductal dilation. Chest X-Ray 02/19/19 11:14 IMPRESSION: Mild streaky right basilar opacities possibly atelectasis/scarring or infection. Right upper lobe scarring. Assessment and Plan - Diagnosis (1) Acute on chronic pancreatitis Is this a current diagnosis for this admission?: Yes Plan: Afebrile, persistent pain, passing flatus, has not had any vomiting, mild nausea, no vomiting. Continue IV fluids, IV opioid analgesics, antiemetics, clear liquids if tolerated. Restart pancrelipase, colestipol. 02/21/2019: SBP 168542, T-max 98.4, HR 66995, SPO2 91-94% RA. BC 10.9, hemoglobin 11.0, platelets 358, odium 135, potassium 3.9, bicarb 20, Dry Sander 0.44, 02/20/2019: SBP 820740, T-max 98.6, pulse 83372, SPO2 9296 RA. WBC 11.4, hemoglobin 11.3, platelets 331, sodium 135, potassium 4.2, bicarb 18, creatinine 0.4, Lipase 14.2. (2) COPD (chronic obstructive pulmonary disease) Qualifiers: COPD type: chronic bronchitis Chronic bronchitis type: simple Qualified Code(s): J41.0 - Simple chronic bronchitis Is this a current diagnosis for this admission?: Yes Plan: Not on acute exacerbation, continue DuoNeb's, supplemental oxygen, PRN BiPAP. (3) Insulin dependent diabetes mellitus Is this a current diagnosis for this admission?: Yes Plan: Improving, not optimized. 02/21/2019: POC glucose 832174. 02/20/2019: POC glucose 597861 Diabetic diet, sliding scale insulin, pre-meal insulin, long-acting insulin. Adjust dosage as needed. Restart home meds upon discharge. (4) Hyperlipidemia Is this a current diagnosis for this admission?: No Plan: Diet and lifestyle modification. Restart home meds. Allergic to statins. (5) Musculoskeletal pain, chronic Is this a current diagnosis for this admission?: No Plan: History of chronic neck injury. Restart Robaxin, cyclobenzaprine, opioid analgesics. Outpatient PCP and pain management follow-up. (6) Hypertension Is this a current diagnosis for this admission?: No Plan: Euvolemic, normotensive. Restart home meds. Adjust meds as needed. We will switch amlodipine to losartan as patient has underlying diabetes. 02/21/2019: SBP 709005, T-max 98.4, [place] 88955, SPO2 91-94% RA. 02/20/2019: SBP 944970, T-max 98.6, pulse 46168, SPO2 9296 RA.
[2019-02-22 04:56] LABS: HEMATOCRIT 31.6 % (37.9-51.0); HEMOGLOBIN 10.9 g/dL (13.5-17.0); MEAN CORPUSCULAR HEMOGLOBIN 28.2 pg (27.0-33.4); MEAN CORPUSCULAR HGB CONC 34.3 g/dL (32.0-36.0); MEAN CORPUSCULAR VOLUME 82 fl (80-97); PLATELET COUNT 398 10^3/uL (150-450); RED BLOOD COUNT 3.85 10^6/uL (4.35-5.55); RED CELL DISTRIBUTION WIDTH 13.3 % (11.5-14.0); WHITE BLOOD COUNT 12.2 10^3/uL (4.0-10.5)
[2019-02-22 05:19] LABS: ALANINE AMINOTRANSFERASE 12 U/L (21-72); ALBUMIN 3.2 g/dL (3.5-5.0); ALKALINE PHOSPHATASE 114 U/L (38-126); ANION GAP 15 (5-19); ASPARTATE AMINO TRANSFERASE 14 U/L (17-59); BILIRUBIN,DIRECT 0.4 mg/dL (0.0-0.4); BILIRUBIN,TOTAL 0.6 mg/dL (0.2-1.3); BLOOD UREA NITROGEN 8 mg/dL (7-20); CALCIUM 10.2 mg/dL (8.4-10.2); CARBON DIOXIDE 19 mmol/L (22-30); CHLORIDE 101 mmol/L (98-107); GLUCOSE 175 mg/dL (75-110); POTASSIUM 3.8 mmol/L (3.6-5.0); SODIUM 135.1 mmol/L (137-145); TOTAL PROTEIN 6.5 g/dL (6.3-8.2)
[2019-02-22] MEDS: HEPARIN SOD (PORCINE) 5,000 UNIT/ML 1 ML SYRINGE SUBCUT SCH ×3 (05:29→22:54)
[2019-02-22] MEDS: HYDROMORPHONE HCL INJ/PF 2 MG/ML AMPULE IV PRN ×2 (06:21→11:54)
[2019-02-22] MEDS: INSULIN LISPRO 100 UNIT/ML 3 ML VIAL SUBCUT SCH ×7 (08:08→21:40)
[2019-02-22] MEDS: LOSARTAN POTASSIUM 25 MG TABLET PO SCH (09:43)
[2019-02-22] MEDS: EZETIMIBE 10 MG TABLET PO SCH (09:43)
[2019-02-22] MEDS: DULOXETINE HCL 30 MG CAPSULE.DR PO SCH (09:43)
[2019-02-22] MEDS: AMLODIPINE BESYLATE 10 MG TABLET PO SCH (09:43)
[2019-02-22] MEDS: TIOTROPIUM BROMIDE DPI 5 CAP/KIT (18 MCG/CAP) IH SCH (09:44)
[2019-02-22] MEDS: GEMFIBROZIL 600 MG TABLET PO SCH ×2 (09:44→17:07)
[2019-02-22] MEDS: METHOCARBAMOL 500 MG TABLET PO SCH ×4 (09:44→21:38)
--- NOTE | 2019-02-22 15:25 | PDOC PROGRESS REPORT ---
Subjective Progress Note for:: 02/22/19 Subjective:: 68 y.o. M with a PMH of chronic pancreatitis who said he has been admitted to the hospital over 20 times in his life with pancreatitis presented to [facility] with a nearly 2-week history of abdominal pain. CT showed findings compatible with acute interstitial pancreatitis, pancreatic calcifications and dilation of the main pancreatic duct. Patient was admitted to the hospitalist service for acute on chronic pancreatitis. Patient was seen this morning on rounds, he is resting comfortably in bed on room air with his at the bedside. The patient endorses epigastric abdominal pain, exacerbated by p.o. intake and palpations. Despite the symptoms, the patient states he is hungry. So much so that he is asking for solid food. On exam, the patient's abdomen is mildly distended. Very tender to palpation in the epigastric region. Positive bowel sounds. Crackles heard in the RLL. Patient was previously receiving maintenance IVF. Discontinued today. Will sustain on p.o. diet for now. Lipase level is normal. Remaining lab work, relatively benign. Patient's lingering pain likely related to pancreatic calcification and his chronic pancreatitis. Plan to initiate Neurontin in an attempt to control patient's pain. Reason For Visit: ACUTE ON CHRONIC PANCREATITIS Physical Exam Vital Signs: Temp Pulse Resp BP Pulse Ox 98.3 F 95 17 131/68 H 94 02/22/19 11:14 02/22/19 11:14 02/22/19 11:14 02/22/19 11:14 02/22/19 11:14 Intake & Output 02/21/19 02/22/19 02/23/19 06:59 06:59 06:59 Intake Total 2985 1400 480 Output Total 675 300 Balance 2310 1100 480 Weight 69.8 kg 68.7 kg General appearance: PRESENT: no acute distress, well-developed, well-nourished Head exam: PRESENT: atraumatic, normocephalic Eye exam: PRESENT: conjunctiva pink, EOMI, PERRLA. ABSENT: scleral icterus Ear exam: PRESENT: normal external ear exam Mouth exam: PRESENT: moist, tongue midline Neck exam: ABSENT: carotid bruit, JVD, lymphadenopathy, thyromegaly Respiratory exam: PRESENT: crackles - RLL, symmetrical, unlabored. ABSENT: rales, rhonchi, wheezes Cardiovascular exam: PRESENT: RRR. ABSENT: diastolic murmur, rubs, systolic murmur Pulses: PRESENT: normal radial pulses, normal dorsalis pedis pul Vascular exam: PRESENT: normal capillary refill GI/Abdominal exam: PRESENT: distended, normal bowel sounds, soft, tenderness - epigastric. ABSENT: guarding, mass, organolmegaly, rebound Rectal exam: PRESENT: deferred Extremities exam: PRESENT: full ROM. ABSENT: calf tenderness, clubbing, pedal edema Musculoskeletal exam: PRESENT: ambulatory, full ROM Neurological exam: PRESENT: alert, awake, oriented to person, oriented to place, oriented to time, oriented to situation Psychiatric exam: PRESENT: appropriate affect, normal mood. ABSENT: homicidal ideation, suicidal ideation Skin exam: PRESENT: dry, intact, warm. ABSENT: cyanosis, rash Results Laboratory Results: 02/22/19 04:19 02/22/19 04:19 02/22/19 02/22/19 02/22/19 04:19 04:19 04:19 WBC 12.2 H RBC 3.85 L Hgb 10.9 L Hct 31.6 L MCV 82 MCH 28.2 MCHC 34.3 RDW 13.3 Plt Count 398 Sodium 135.1 L Potassium 3.8 Chloride 101 Carbon Dioxide 19 L Anion Gap 15 BUN 8 Creatinine 0.48 L Est GFR ( Amer) > 60 Est GFR (Non-Af Amer) > 60 Glucose 175 H Calcium 10.2 Magnesium 1.6 Total Bilirubin 0.6 AST 14 L ALT 12 L Alkaline Phosphatase 114 Total Protein 6.5 Albumin 3.2 L Lipase < 10.0 L 02/19/19 02/19/19 11:24 11:24 Creatine Kinase 21 L Troponin I < 0.012 Impressions: Abdomen/Pelvis CT 02/19/19 00:00 IMPRESSION: 1. Findings compatible with acute interstitial pancreatitis. No evidence of pancreatic necrosis or peripancreatic collection. 2. Additional stable findings of chronic pancreatitis with pancreatic calcifications and dilation of the main pancreatic duct measuring up to 1.0 cm. Bulky calcifications within the duct at the level of the pancreatic head, stable. Additional stable mild intrahepatic biliary ductal dilation. Chest X-Ray 02/19/19 11:14 IMPRESSION: Mild streaky right basilar opacities possibly atelectasis/scarring or infection. Right upper lobe scarring. Status: Imported from PACS Assessment and Plan - Diagnosis (1) Acute on chronic pancreatitis Is this a current diagnosis for this admission?: Yes Plan: Acute on chronic pancreatitis CT shows findings compatible with acute interstitial pancreatitis, stable findings of chronic pancreatitis with pancreatic calcifications and dilation of the main pancreatic duct Endorses postprandial abdominal pain Lipase levels normal Afebrile, nontoxic appearing PRN dilaudid and toradol for pain Attempt scheduled neurontin for chronic abdominal pain PRN antiemetics Currently on clear liquids, patient is asking for food, will attempt soft diet (2) COPD (chronic obstructive pulmonary disease) Qualifiers: COPD type: chronic bronchitis Chronic bronchitis type: simple Qualified Code(s): J41.0 - Simple chronic bronchitis Is this a current diagnosis for this admission?: Yes Plan: No acute exacerbation Continue Spiriva and proair BIPAP as needed (3) Insulin dependent diabetes mellitus Is this a current diagnosis for this admission?: Yes Plan: Poorly controlled Hemoglobin A1c 10.6% Accu-Cheks AC at bedtime Humalog sliding scale insulin Pre-meal insulin Diabetic diet (4) Hyperlipidemia Is this a current diagnosis for this admission?: Yes Plan: Controlled with Zetia and Lopid at home Continue Zetia (Lopid not on formulary) Allergic to statins (5) Musculoskeletal pain, chronic Is this a current diagnosis for this admission?: Yes Plan: History of chronic neck pain Continue home dose Robaxin and cyclobenzaprine PRN Dilaudid Outpatient PCP and pain management follow-up (6) Hypertension Is this a current diagnosis for this admission?: No Plan: PMH HTN Blood pressure well controlled while inpatient Continue home dose amlodipine and Cozaar PRN hydralazine for SBP>170 - Time Time Spent with patient: 15-24 minutes Medications reviewed and adjusted accordingly: Yes Anticipated discharge: Home Within: within 72 hours - Inpatient Certification Based on my medical assessment, after consideration of the patient's comorbidities, presenting symptoms, or acuity I expect that the services needed warrant INPATIENT care.: Yes I certify that my determination is in accordance with my understanding of Medicare's requirements for reasonable and necessary INPATIENT services [42 CFR 412.3e].: Yes Medical Necessity: Need For Continuous Telemetry Monitoring, Risk of Complication if Not Cared For in Hospital - Plan Summary Plan Summary: ATTEMPT NEURONTIN FOR CHRONIC ABDOMINAL PAIN MANAGEMENT
[2019-02-22] MEDS: GABAPENTIN 100 MG CAPSULE PO SCH ×2 (15:35→21:38)
[2019-02-22] MEDS: KETOROLAC TROMETHAMINE INJ/PF 30 MG/1 ML SDV IV PRN ×2 (16:25→20:35)
[2019-02-22] MEDS: LIPASE/PROTEASE/AMYLASE 1 CAP CAPSULE.DR PO SCH (17:06)
[2019-02-23] MEDS: KETOROLAC TROMETHAMINE INJ/PF 30 MG/1 ML SDV IV PRN ×4 (02:26→23:42)
[2019-02-23] MEDS: HEPARIN SOD (PORCINE) 5,000 UNIT/ML 1 ML SYRINGE SUBCUT SCH ×3 (06:18→21:49)
[2019-02-23] MEDS: GABAPENTIN 100 MG CAPSULE PO SCH (07:54)
[2019-02-23] MEDS: CYCLOBENZAPRINE HCL 10 MG TABLET PO PRN (07:54)
[2019-02-23] MEDS: LIPASE/PROTEASE/AMYLASE 1 CAP CAPSULE.DR PO SCH ×2 (07:54→15:27)
[2019-02-23] MEDS: INSULIN LISPRO 100 UNIT/ML 3 ML VIAL SUBCUT SCH ×7 (07:55→22:00)
[2019-02-23] MEDS: HYDROMORPHONE HCL INJ/PF 2 MG/ML AMPULE IV PRN (08:20)
[2019-02-23] MEDS: DULOXETINE HCL 30 MG CAPSULE.DR PO SCH (09:05)
[2019-02-23] MEDS: AMLODIPINE BESYLATE 10 MG TABLET PO SCH (09:05)
[2019-02-23] MEDS: LOSARTAN POTASSIUM 25 MG TABLET PO SCH (09:05)
[2019-02-23] MEDS: EZETIMIBE 10 MG TABLET PO SCH (09:05)
[2019-02-23] MEDS: METHOCARBAMOL 500 MG TABLET PO SCH ×4 (09:05→23:42)
[2019-02-23] MEDS: GEMFIBROZIL 600 MG TABLET PO SCH ×2 (09:06→17:10)
[2019-02-23] MEDS: TIOTROPIUM BROMIDE DPI 5 CAP/KIT (18 MCG/CAP) IH SCH (09:06)
[2019-02-23] MEDS ORDERED: MAGNESIUM HYDROXIDE SUSP 30 ML UDCUP PO PRN (13:41)
[2019-02-23] MEDS: NALBUPHINE HCL INJ 10 MG/1 ML AMPULE INJ PRN ×2 (14:04→19:42)
[2019-02-23] MEDS ORDERED: FUROSEMIDE INJ/PF 20 MG/2 ML SDV IV ONE (15:40)
--- NOTE | 2019-02-23 15:48 | PDOC PROGRESS REPORT ---
Subjective Progress Note for:: 02/23/19 Subjective:: 68 y.o. M with a PMH of chronic pancreatitis who said he has been admitted to the hospital over 20 times in his life with pancreatitis presented to [facility] with a nearly 2-week history of abdominal pain. CT showed findings compatible with acute interstitial pancreatitis, pancreatic calcifications and dilation of the main pancreatic duct. Patient was admitted to the hospitalist service for acute on chronic pancreatitis. Patient was seen this morning on rounds, he is resting in bed on room air with his at the bedside. The patient endorses epigastric and RUQ abdominal pain, exacerbated by p.o. intake and palpations. He states his pain is worse compared to yesterday. He states the p.o. Neurontin has done nothing for his abdominal pain. On exam, the patient's abdomen is mildly distended. Very tender to palpation in the epigastric region. Positive bowel sounds. Crackles are still heard in the RLL. Patient was previously receiving maintenance IVF. Discontinued yesterday. Will sustain on p.o. diet for now. Plan to administer a single dose of Lasix to treat his volume overload. Plan to initiate Nubain IV and increase IV Toradol dosing in an attempt to alleviate his pain. Reason For Visit: ACUTE ON CHRONIC PANCREATITIS Physical Exam Vital Signs: Temp Pulse Resp BP Pulse Ox 98.3 F 101 H 16 123/62 90 L 02/23/19 11:09 02/23/19 14:00 02/23/19 11:09 02/23/19 11:09 02/23/19 11:09 Intake & Output 02/22/19 02/23/19 02/24/19 06:59 06:59 06:59 Intake Total 1400 1220 450 Output Total 300 850 300 Balance 1100 370 150 Weight 68.7 kg 67.9 kg General appearance: PRESENT: no acute distress, well-developed, well-nourished Head exam: PRESENT: atraumatic, normocephalic Eye exam: PRESENT: conjunctiva pink, EOMI, PERRLA. ABSENT: scleral icterus Ear exam: PRESENT: normal external ear exam Mouth exam: PRESENT: moist, tongue midline Neck exam: ABSENT: carotid bruit, JVD, lymphadenopathy, thyromegaly Respiratory exam: PRESENT: clear to auscultation eric, symmetrical, unlabored. ABSENT: rales, rhonchi, wheezes Cardiovascular exam: PRESENT: RRR. ABSENT: diastolic murmur, rubs, systolic murmur Pulses: PRESENT: normal radial pulses, normal dorsalis pedis pul Vascular exam: PRESENT: normal capillary refill GI/Abdominal exam: PRESENT: distended, normal bowel sounds, soft, tenderness - Exquisitely tender in the RUQ and epigastric region. ABSENT: guarding, mass, organolmegaly, rebound Rectal exam: PRESENT: deferred Extremities exam: PRESENT: full ROM. ABSENT: calf tenderness, clubbing, pedal edema Musculoskeletal exam: PRESENT: ambulatory, full ROM, normal inspection Neurological exam: PRESENT: alert, awake, oriented to person, oriented to place, oriented to time, oriented to situation Psychiatric exam: PRESENT: appropriate affect, normal mood Skin exam: PRESENT: dry, intact, warm. ABSENT: cyanosis, rash Results Laboratory Results: 02/22/19 04:19 02/22/19 04:19 02/19/19 02/19/19 11:24 11:24 Creatine Kinase 21 L Troponin I < 0.012 Impressions: Abdomen/Pelvis CT 02/19/19 00:00 IMPRESSION: 1. Findings compatible with acute interstitial pancreatitis. No evidence of pancreatic necrosis or peripancreatic collection. 2. Additional stable findings of chronic pancreatitis with pancreatic calcif ications and dilation of the main pancreatic duct measuring up to 1.0 cm. Bulky calcifications within the duct at the level of the pancreatic head, stable. Additional stable mild intrahepatic biliary ductal dilation. Chest X-Ray 02/19/19 11:14 IMPRESSION: Mild streaky right basilar opacities possibly atelectasis/scarring or infection. Right upper lobe scarring. Status: Imported from PACS Assessment and Plan - Diagnosis (1) Acute on chronic pancreatitis Is this a current diagnosis for this admission?: Yes Plan: Acute on chronic pancreatitis CT shows findings compatible with acute interstitial pancreatitis, stable findings of chronic pancreatitis with pancreatic calcifications and dilation of the main pancreatic duct Endorses postprandial abdominal pain Lipase levels normal Afebrile, nontoxic appearing PRN toradol for pain, will increase dose from 50 mg to 30 mg Discontinue scheduled Neurontin, patient states it did not alleviate his pain Initiate as needed Nubain IV for pain relief PRN antiemetics Soft cardiac/diabetic diet (2) COPD (chronic obstructive pulmonary disease) Qualifiers: COPD type: chronic bronchitis Chronic bronchitis type: simple Qualified Code(s): J41.0 - Simple chronic bronchitis Is this a current diagnosis for this admission?: Yes Plan: No acute exacerbation Continue Spiriva and proair BIPAP as needed (3) Insulin dependent diabetes mellitus Is this a current diagnosis for this admission?: Yes Plan: Poorly controlled Hemoglobin A1c 10.6% Accu-Cheks AC at bedtime Humalog sliding scale insulin Pre-meal insulin Diabetic diet (4) Hyperlipidemia Is this a current diagnosis for this admission?: Yes Plan: Controlled with Zetia and Lopid at home Continue Zetia (Lopid not on formulary) Allergic to statins (5) Musculoskeletal pain, chronic Is this a current diagnosis for this admission?: Yes Plan: History of chronic neck pain Continue home dose Robaxin and cyclobenzaprine Outpatient PCP follow-up (6) Hypertension Is this a current diagnosis for this admission?: No Plan: PMH HTN Blood pressure well controlled while inpatient Continue home dose amlodipine and Cozaar PRN hydralazine for SBP>170 - Time Time Spent with patient: 15-24 minutes Medications reviewed and adjusted accordingly: Yes Anticipated discharge: Home Within: within 36 hours - Inpatient Certification Based on my medical assessment, after consideration of the patient's comorbidities, presenting symptoms, or acuity I expect that the services needed warrant INPATIENT care.: Yes I certify that my determination is in accordance with my understanding of Medicare's requirements for reasonable and necessary INPATIENT services [42 CFR 412.3e].: Yes Medical Necessity: Need for Pain Control - Plan Summary Plan Summary: Change pain regimen. Monitor pain while on soft diet.
[2019-02-24] MEDS: HEPARIN SOD (PORCINE) 5,000 UNIT/ML 1 ML SYRINGE SUBCUT SCH ×3 (06:33→21:54)
[2019-02-24] MEDS: INSULIN LISPRO 100 UNIT/ML 3 ML VIAL SUBCUT SCH ×7 (07:56→21:55)
[2019-02-24] MEDS: LIPASE/PROTEASE/AMYLASE 1 CAP CAPSULE.DR PO SCH ×2 (07:57→17:25)
[2019-02-24] MEDS: KETOROLAC TROMETHAMINE INJ/PF 30 MG/1 ML SDV IV PRN ×3 (07:57→22:13)
[2019-02-24 08:43] LABS: HEMATOCRIT 30.8 % (37.9-51.0); HEMOGLOBIN 10.6 g/dL (13.5-17.0); MEAN CORPUSCULAR HEMOGLOBIN 28.3 pg (27.0-33.4); MEAN CORPUSCULAR HGB CONC 34.5 g/dL (32.0-36.0); MEAN CORPUSCULAR VOLUME 82 fl (80-97); PLATELET COUNT 563 10^3/uL (150-450); RED BLOOD COUNT 3.75 10^6/uL (4.35-5.55); RED CELL DISTRIBUTION WIDTH 13.3 % (11.5-14.0); WHITE BLOOD COUNT 10.9 10^3/uL (4.0-10.5)
[2019-02-24 09:13] LABS: ALANINE AMINOTRANSFERASE 18 U/L (21-72); ALBUMIN 3.2 g/dL (3.5-5.0); ALKALINE PHOSPHATASE 139 U/L (38-126); ANION GAP 15 (5-19); ASPARTATE AMINO TRANSFERASE 16 U/L (17-59); BILIRUBIN,DIRECT 0.4 mg/dL (0.0-0.4); BILIRUBIN,TOTAL 0.5 mg/dL (0.2-1.3); BLOOD UREA NITROGEN 11 mg/dL (7-20); CALCIUM 10.1 mg/dL (8.4-10.2); CARBON DIOXIDE 20 mmol/L (22-30); CHLORIDE 100 mmol/L (98-107); GLUCOSE 288 mg/dL (75-110); LIPASE 11.5 U/L (23-300); PHOSPHORUS 3.9 mg/dL (2.5-4.5); POTASSIUM 3.4 mmol/L (3.6-5.0); SODIUM 134.6 mmol/L (137-145); TOTAL PROTEIN 6.7 g/dL (6.3-8.2)
[2019-02-24] MEDS: TIOTROPIUM BROMIDE DPI 5 CAP/KIT (18 MCG/CAP) IH SCH (09:32)
[2019-02-24] MEDS: AMLODIPINE BESYLATE 10 MG TABLET PO SCH (09:33)
[2019-02-24] MEDS: LOSARTAN POTASSIUM 25 MG TABLET PO SCH (09:36)
[2019-02-24] MEDS: DULOXETINE HCL 30 MG CAPSULE.DR PO SCH (09:36)
[2019-02-24] MEDS: EZETIMIBE 10 MG TABLET PO SCH (09:37)
[2019-02-24] MEDS: METHOCARBAMOL 500 MG TABLET PO SCH ×4 (09:37→21:57)
[2019-02-24] MEDS: GEMFIBROZIL 600 MG TABLET PO SCH ×2 (09:37→17:56)
[2019-02-24] MEDS: NALBUPHINE HCL INJ 10 MG/1 ML AMPULE INJ PRN (12:08)
[2019-02-24] MEDS: POLYETHYLENE GLYCOL 3350 POWDER 17 GM/1 PACKET PO PRN (17:58)
[2019-02-24] MEDS: SENNOSIDES/DOCUSATE 8.6-50 MG 1 EACH TABLET PO PRN (17:58)
[2019-02-24] MEDS: TRAMADOL HCL 50 MG TABLET PO PRN (18:40)
[2019-02-24] MEDS: CYCLOBENZAPRINE HCL 10 MG TABLET PO PRN (22:13)
[2019-02-25] MEDS: HEPARIN SOD (PORCINE) 5,000 UNIT/ML 1 ML SYRINGE SUBCUT SCH ×2 (05:57→14:07)
[2019-02-25] MEDS: TRAMADOL HCL 50 MG TABLET PO PRN (05:59)
--- NOTE | 2019-02-25 07:16 | PDOC PROGRESS REPORT ---
Subjective Progress Note for:: 02/24/19 Subjective:: 68 y.o. M with a PMH of chronic pancreatitis who said he has been admitted to the hospital over 20 times in his life with pancreatitis [facility] nearly 2-week history of abdominal pain. CT showed findings compatible with acute interstitial pancreatitis, pancreatic calcifications and dilation of the main pancreatic duct. Patient was admitted to the hospitalist service for acute on chronic pancreatitis. Patient was seen this morning on rounds, he is resting in bed on room air with his at the bedside. The patient endorses IMPROVING epigastric and RUQ abdominal pain. He was able to tolerate a soft diet today without postprandial abdominal pain. On exam, the patient's abdomen is mildly distended. Very tender to palpation in the epigastric region. Positive bowel sounds. Discussed discharge home with the patient and he stated he was not ready to go home. Stated he was having 'too much pain' to be discharged. Consider consulting [place] [facility]. Will transition from Nubain to Tramadol for pain control. If patient does well with Tramadol and continues to tolerate PO diet, consider discharge in 24 hours. Reason For Visit: ACUTE ON CHRONIC PANCREATITIS Physical Exam Vital Signs: Temp Pulse Resp BP Pulse Ox 98.4 F 73 16 119/54 L 93 02/24/19 23:24 02/25/19 02:00 02/24/19 23:24 02/24/19 23:24 02/24/19 23:24 Intake & Output 02/24/19 02/25/19 02/26/19 06:59 06:59 06:59 Intake Total 1170 1130 Output Total 750 900 Balance 420 230 Weight 68.2 kg 68.2 kg General appearance: PRESENT: no acute distress, well-developed, well-nourished Head exam: PRESENT: atraumatic, normocephalic Eye exam: PRESENT: conjunctiva pink, EOMI, PERRLA. ABSENT: scleral icterus Ear exam: PRESENT: normal external ear exam Mouth exam: PRESENT: moist, tongue midline Neck exam: ABSENT: carotid bruit, JVD, lymphadenopathy, thyromegaly Respiratory exam: PRESENT: clear to auscultation eric, symmetrical, unlabored. ABSENT: rales, rhonchi, wheezes Cardiovascular exam: PRESENT: RRR. ABSENT: diastolic murmur, rubs, systolic murmur Pulses: PRESENT: normal radial pulses, normal dorsalis pedis pul Vascular exam: PRESENT: normal capillary refill GI/Abdominal exam: PRESENT: distended, normal bowel sounds, soft, tenderness. ABSENT: guarding, mass, organolmegaly, rebound Rectal exam: PRESENT: deferred Extremities exam: PRESENT: full ROM. ABSENT: calf tenderness, clubbing, pedal edema Musculoskeletal exam: PRESENT: ambulatory, full ROM Neurological exam: PRESENT: alert, awake, oriented to person, oriented to place, oriented to time, oriented to situation Psychiatric exam: PRESENT: appropriate affect, normal mood Skin exam: PRESENT: dry, intact, warm. ABSENT: cyanosis, rash Results Laboratory Results: 02/24/19 08:16 02/24/19 08:16 02/24/19 02/24/19 08:16 08:16 WBC 10.9 H RBC 3.75 L Hgb 10.6 L Hct 30.8 L MCV 82 MCH 28.3 MCHC 34.5 RDW 13.3 Plt Count 563 H Sodium 134.6 L Potassium 3.4 L Chloride 100 Carbon Dioxide 20 L Anion Gap 15 BUN 11 Creatinine 0.57 Est GFR ( Amer) > 60 Est GFR (Non-Af Amer) > 60 Glucose 288 H Calcium 10.1 Phosphorus 3.9 Magnesium 1.8 Total Bilirubin 0.5 AST 16 L ALT 18 L Alkaline Phosphatase 139 H Total Protein 6.7 Albumin 3.2 L Lipase 11.5 L 02/19/19 02/19/19 11:24 11:24 Creatine Kinase 21 L Troponin I < 0.012 Impressions: Abdomen/Pelvis CT 02/19/19 00:00 IMPRESSION: 1. Findings compatible with acute interstitial pancreatitis. No evidence of pancreatic necrosis or peripancreatic collection. 2. Additional stable findings of chronic pancreatitis with pancreatic calcifications and dilation of the main pancreatic duct measuring up to 1.0 cm. Bulky calcifications within the duct at the level of the pancreatic head, stable. Additional stable mild intrahepatic biliary ductal dilation. Chest X-Ray 02/19/19 11:14 IMPRESSION: Mild streaky right basilar opacities possibly atelectasis/scarring or infection. Right upper lobe scarring. Status: Imported from PACS Assessment and Plan - Diagnosis (1) Acute on chronic pancreatitis Is this a current diagnosis for this admission?: Yes Plan: Acute on chronic pancreatitis CT shows findings compatible with acute interstitial pancreatitis, stable findings of chronic pancreatitis with pancreatic calcifications and dilation of the main pancreatic duct Endorses postprandial abdominal pain Lipase levels now normal Afebrile, nontoxic appearing PRN toradol for pain, increased dose from 15 mg to 30 mg Discontinue scheduled Neurontin, patient states it did not alleviate his pain As needed Nubain IV for pain relief Trial PO pain reliever Tramadol PRN antiemetics Soft cardiac/diabetic diet (2) COPD (chronic obstructive pulmonary disease) Qualifiers: COPD type: chronic bronchitis Chronic bronchitis type: simple Qualified Code(s): J41.0 - Simple chronic bronchitis Is this a current diagnosis for this admission?: Yes Plan: No acute exacerbation Continue Spiriva and proair BIPAP as needed (3) Insulin dependent diabetes mellitus Is this a current diagnosis for this admission?: Yes Plan: Poorly controlled Hemoglobin A1c 10.6% Accu-Cheks AC at bedtime Humalog sliding scale insulin Pre-meal insulin Diabetic diet (4) Hyperlipidemia Is this a current diagnosis for this admission?: Yes Plan: Controlled with Zetia and Lopid at home Continue Zetia (Lopid not on formulary) Allergic to statins (5) Musculoskeletal pain, chronic Is this a current diagnosis for this admission?: Yes Plan: History of chronic neck pain Continue home dose Robaxin and cyclobenzaprine Outpatient PCP follow-up (6) Hypertension Is this a current diagnosis for this admission?: No Plan: H HTN Blood pressure well controlled while inpatient Continue home dose amlodipine and Cozaar PRN hydralazine for SBP>170 - Time Time Spent with patient: 15-24 minutes Medications reviewed and adjusted accordingly: Yes Anticipated discharge: Home Within: within 24 hours, within 48 hours - Inpatient Certification Based on my medical assessment, after consideration of the patient's comorbidities, presenting symptoms, or acuity I expect that the services needed warrant INPATIENT care.: Yes I certify that my determination is in accordance with my understanding of Medicare's requirements for reasonable and necessary INPATIENT services [42 CFR 412.3e].: Yes Medical Necessity: Need for Pain Control, Risk of Complication if Not Cared For in Hospital
[2019-02-25] MEDS: INSULIN LISPRO 100 UNIT/ML 3 ML VIAL SUBCUT SCH ×6 (08:34→17:58)
[2019-02-25] MEDS: LIPASE/PROTEASE/AMYLASE 1 CAP CAPSULE.DR PO SCH ×2 (08:35→17:59)
[2019-02-25] MEDS: KETOROLAC TROMETHAMINE INJ/PF 30 MG/1 ML SDV IV PRN (08:40)
[2019-02-25] MEDS: LOSARTAN POTASSIUM 25 MG TABLET PO SCH (09:22)
[2019-02-25] MEDS: DULOXETINE HCL 30 MG CAPSULE.DR PO SCH (09:22)
[2019-02-25] MEDS: SENNOSIDES/DOCUSATE 8.6-50 MG 1 EACH TABLET PO PRN (09:23)
[2019-02-25] MEDS: AMLODIPINE BESYLATE 10 MG TABLET PO SCH (09:23)
[2019-02-25] MEDS: METHOCARBAMOL 500 MG TABLET PO SCH ×3 (09:24→17:59)
[2019-02-25] MEDS: EZETIMIBE 10 MG TABLET PO SCH (09:24)
[2019-02-25] MEDS: GEMFIBROZIL 600 MG TABLET PO SCH ×2 (09:24→17:02)
[2019-02-25] MEDS: POLYETHYLENE GLYCOL 3350 POWDER 17 GM/1 PACKET PO PRN (14:07)
[2019-02-25] MEDS ORDERED: POTASSIUM CHLORIDE 10 MEQ CAPSULE.ER PO ONE (15:00)
--- NOTE | 2019-02-25 16:10 | PDOC DISCHARGE SUMMARY ---
General - Admit/Disc Date/PCP Admission Date/Primary Care Provider: 02/19/19 16:[facility] Discharge Date: 02/25/19 - Discharge Diagnosis (1) Acute on chronic pancreatitis Is this a current diagnosis for this admission?: Yes (2) COPD (chronic obstructive pulmonary disease) Is this a current diagnosis for this admission?: Yes (3) Hyperlipidemia Is this a current diagnosis for this admission?: Yes (4) Hypertension Is this a current diagnosis for this admission?: No (5) Insulin dependent diabetes mellitus Is this a current diagnosis for this admission?: Yes (6) Musculoskeletal pain, chronic Is this a current diagnosis for this admission?: Yes - Additional Information Resuscitation Status: Full Code Discharge Diet: As Tolerated Discharge Activity: Activity As Tolerated Prescriptions: Hydrocodone Bit/Acetaminophen [Hydrocodon-Acetaminophen 5-325] 1 each PO Q8HP PRN #9 tablet PRN Reason: Home Medications: Acetaminophen [Tylenol 325 mg Tablet] 650 mg PO Q6HP PRN 02/19/19 Albuterol Sulfate [Proair HFA Inhalation Aerosol 8.5 gm MDI] 2 puff IH Q6HP PRN 02/19/19 Amlodipine Besylate [Norvasc 10 mg Tablet] 10 mg PO DAILY 02/19/19 Colestipol HCl [Colestid 1 gm Tablet] 2 gm PO DAILY 02/19/19 Cyclobenzaprine HCl [Flexeril 5 mg Tablet] 5 mg PO TIDP PRN 02/19/19 Docusate Calcium [Stool Softener] 240 mg PO QPM 02/19/19 Duloxetine HCl [Cymbalta] 60 mg PO DAILY 02/19/19 Ezetimibe [Zetia 10 mg Tablet] 10 mg PO DAILY 02/19/19 Ferrous Sulfate 324 mg PO DAILY 02/19/19 Gemfibrozil [Lopid 600 mg Tablet] 600 mg PO BID 02/19/19 Insulin Aspart [Novolog Flexpen] 5 units SQ MEALS 02/19/19 Insulin Glargine,Hum.rec.anlog [Lantus Insulin 100 Unit/1 ml 10 ml] 32 units SQ QPM 02/19/19 Lipase/Protease/Amylase [Creon Dr 12,000 Units Capsule] 1 cap PO BID 02/19/19 Metformin HCl [Glucophage 500 mg Tablet] 500 mg PO BID 02/19/19 Methocarbamol [Robaxin 500 mg Tablet] 500 mg PO QID 02/19/19 Multivitamin [Multiple Vitamins] 1 tab PO DAILY 02/19/19 Naproxen [Naprosyn] 500 mg PO BID 02/19/19 Omeprazole 20 mg PO BID 02/19/19 Tiotropium [place] [Spiriva Handihaler 5 Cap/Kit (18 Mcg/Cap)] 1 cap IH DAILY 02/19/19 Hydrocodone Bit/Acetaminophen [Hydrocodon-Acetaminophen 5-325] 1 each PO Q8HP PRN #9 tablet 02/25/19 History of Present Illness History of Present Illness: OZIEL HAYWARD is a 68 year old male Hospital Course Hospital Course: 68 y.o. M with a PMH of chronic pancreatitis who said he has been admitted to the hospital over 20 times in his life with pancreatitis presented to [facility] with a nearly 2-week history of abdominal pain. CT showed findings compatible with acute interstitial pancreatitis, pancreatic calcifications and dilation of the main pancreatic duct. Patient was admitted to the hospitalist service for acute on chronic pancreatitis. Patient was seen this morning on rounds, he is resting in bed on room air with his at the bedside. The patient endorses IMPROVING epigastric and RUQ abdominal pain. He was able to tolerate a soft diet today without postprandial abdominal pain. On exam, the patient's abdomen is mildly distended. Very tender to palpation in the epigastric region. Positive bowel sounds. Discussed discharge home with the patient and he stated he was not ready to go home. Stated he was having 'too much pain' to be discharged. Consider consulting [facility] [facility]. Will transition from Nubain to Tramadol for pain control. If patient does well with Tramadol and continues to tolerate PO diet, consider discharge in 24 hours. Hospital course: (1) Acute on chronic pancreatitis Acute on chronic pancreatitis CT shows findings compatible with acute interstitial pancreatitis, stable findings of chronic pancreatitis with pancreatic calcifications and dilation of the main pancreatic duct Endorses postprandial abdominal pain Lipase levels now normal Afebrile, nontoxic appearing PRN toradol for pain, increased dose from 15 mg to 30 mg Discontinue scheduled Neurontin, patient states it did not alleviate his pain As needed Nubain IV for pain relief Trial PO pain reliever Tramadol PRN antiemetics Soft cardiac/diabetic diet (2) COPD (chronic obstructive pulmonary disease) No acute exacerbation Continue Spiriva and proair BIPAP as needed (3) Insulin dependent diabetes mellitus Poorly controlled Hemoglobin A1c 10.6% Accu-Cheks AC at bedtime Humalog sliding scale insulin Pre-meal insulin Diabetic diet (4) Hyperlipidemia Controlled with Zetia and Lopid at home Continue Zetia (Lopid not on formulary) Allergic to statins (5) Musculoskeletal pain, chronic History of chronic neck pain Continue home dose Robaxin and cyclobenzaprine Outpatient PCP follow-up (6) Hypertension PMH HTN Blood pressure well controlled while inpatient Continue home dose amlodipine and Cozaar PRN hydralazine for SBP>170 Patient is tolerating diet very well. Pain significantly improved. He ambulate d with nursing staff in the hallways with no difficulty. Patient stable for discharge. Will give short prescription of hydrocodone which should be enough for him to go home. Should follow-up with outpatient primary care physician and possibly GI. Time spent on discharge 33 minutes. Physical Exam Vital Signs: Temp Pulse Resp BP Pulse Ox 97.3 F 71 18 117/61 96 02/25/19 11:51 02/25/19 14:00 02/25/19 11:51 02/25/19 11:51 02/25/19 11:51 Intake & Output 02/24/19 02/25/19 02/26/19 06:59 06:59 06:59 Intake Total 1170 1130 Output Total 750 900 Balance 420 230 Weight 150 lb 5.684 oz 150 lb 5.684 oz Results Laboratory Results: 02/24/19 08:16 02/24/19 08:16 02/19/19 02/19/19 11:24 11:24 Creatine Kinase 21 L Troponin I < 0.012 Impressions: Abdomen/Pelvis CT 02/19/19 00:00 IMPRESSION: 1. Findings compatible with acute interstitial pancreatitis. No evidence of pancreatic necrosis or peripancreatic collection. 2. Additional stable findings of chronic pancreatitis with pancreatic calcifications and dilation of the main pancreatic duct measuring up to 1.0 cm. Bulky calcifications within the duct at the level of the pancreatic head, stable. Additional stable mild intrahepatic biliary ductal dilation. Chest X-Ray 02/19/19 11:14 IMPRESSION: Mild streaky right basilar opacities possibly atelectasis/scarring or infection. Right upper lobe scarring. Qualifiers - * PATIENT BEING DISCHARGED WITH ANY OF THE FOLLOWING DIAGNOSIS: No Acute Heart Failure Is this a Heart Failure Patient?: No
[2019-02-25 17:10] VITALS: BP 148/72
== END 2019-02-25 18:35 | disposition home or self-care (01) | DRG 440 ==
LOC: ER 10:51 → EH 16:50 → 5 18:08
PROVIDERS: ADMIT Family Medicine; ATTEND Family Medicine
DX: K85.80 Other acute pancreatitis without necrosis or infection (principal); E11.9 Type 2 diabetes mellitus without complications; E78.5 Hyperlipidemia, unspecified; K86.1 Other chronic pancreatitis; J41.0 Simple chronic bronchitis; I10 Essential (primary) hypertension; G89.29 Other chronic pain; M54.2 Cervicalgia; F31.9 Bipolar disorder, unspecified; F43.10 Post-traumatic stress disorder, unspecified; Z90.49 Acquired absence of other specified parts of digestive tract; Z87.891 Personal history of nicotine dependence; Z79.4 Long term (current) use of insulin; Z82.3 Family history of stroke; Z80.0 Family history of malignant neoplasm of digestive organs
CPT/HCPCS: 36415; 71046; 74177; 80048; 80053; 80307; 81001; 82150; 82550; 82962; 83036; 83690; 83735; 84100; 84484; 85025; 85027; 93005; 93010; 96374; 99285; J1170; J1644; J1815; J1885; J1940; J2270; J2300; J3475; J3490; J7030; J7120